=== PATIENT | male | born 1990 | race Hispanic/Latino ===

== ENCOUNTER → 2018-09-05 | Outpatient (CLI) | payer OTHER ==
[2018-09-05 17:20] LABS: BASOPHIL # 0.1 10^3/uL (0.0-0.1); BASOPHIL % 1.7 % (0.0-0.2); EOSINOPHIL # 0.1 10^3/uL (0.0-0.2); EOSINOPHIL % 1.2 % (0.0-5.0); HEMOGLOBIN 16.4 g/dL (13.9-16.3); LYMPHOCYTES # 2.4 10^3/uL (1.0-4.8); LYMPHOCYTES % 49.2 % (24.0-44.0); MEAN CELL HGB 32.7 pg (26-34); MEAN CELL HGB CONCENTRATION 35.4 g/dL (33-37); MEAN CORP VOLUME 92.4 fL (78-100); MEAN PLATELET VOLUME 10.2 fL (7.8-11.0); MONOCYTES # 0.3 10^3/uL (0.3-0.8); MONOCYTES % 5.6 % (5.0-12.0); NEUTROPHILS % 42.1 % (41.0-85.0); RED CELL DISTRIBUTION WIDTH 15.4 % (11.5-14.5); WHITE BLOOD CELL 4.8 10^3/uL (4.5-11.0)
[2018-09-05 17:44] LABS: CALCIUM 8.5 mg/dL (8.4-10.5); CARBON DIOXIDE 30.3 mmol/L (20.0-32)
== END | disposition home or self-care (01) ==
LOC: LAB 16:59
PROVIDERS: ATTEND Internal Medicine
DX: R53.83 Other fatigue (principal)
CPT/HCPCS: 36415; 80053; 80061; 83036; 84439; 84443; 85025